=== PATIENT | male | born 1955 | race Caucasian/White ===

== ENCOUNTER 2022-01-02 08:35 | Outpatient (CLI) | payer OTHER, MEDICARE | END 2022-01-02 08:36 | disposition home or self-care (01) | LOC: TBSIIMAG 08:35 | PROVIDERS: ATTEND Neurological Surgery | DX: M47.26 Other spondylosis with radiculopathy, lumbar region (principal) | CPT/HCPCS: 72120 ==

== ENCOUNTER 2022-04-18 08:39 | Outpatient (CLI) | payer MEDICARE ==
[2022-04-18 09:29] LABS: Hemoglobin 14.8 g/dL (13.5-17.5); Mean Corpuscular HGB CONC 33.4 g/dL (32.0-36.0); Mean Corpuscular Hemoglobin 30.4 pg (27.0-33.0); Platelet Count 201 10x3/uL (150-450); RBC Distribution Width 12.8 % (11.5-14.5); Red Blood Cell (RBC) Count 4.87 10x6/uL (4.32-5.72)
[2022-04-18 09:40] LABS: Anion Gap 13 mmol/L (10-20); BUN (Urea Nitrogen) 15 mg/dL (8.4-25.7); Calc. Creatinine Clearance 0 mL/min (70-130); Calcium 9.3 mg/dL (7.8-10.44); Carbon Dioxide 26 mmol/L (23-31); Chloride 103 mmol/L (98-107); Estimated GFR 92; Glucose 123 mg/dL (80-115); Potassium 4.2 mmol/L (3.5-5.1); Sodium 138 mmol/L (136-145)
[2022-04-18 09:44] LABS: PTT 29.8 sec (22.0-33.0); Prothrombin Time 10.8 sec (9.5-12.1)
== END 2022-04-18 08:40 | disposition home or self-care (01) ==
LOC: LABBT 08:39
PROVIDERS: ATTEND Neurological Surgery
DX: Z01.818 Encounter for other preprocedural examination (principal); M48.061 Spinal stenosis, lumbar region without neurogenic claudication
CPT/HCPCS: 80048; 85027; 85610; 85730; 93005; 93010

== ENCOUNTER 2022-04-22 05:37 | Day surgery (SDC) | payer MEDICARE ==
[2022-04-18 12:04] VITALS: BMI 40.7
[2022-04-22] MEDS ORDERED: Thrombin 5000 UNITS/5 ML VIAL ONE (06:12)
[2022-04-22] MEDS ORDERED: Neomycin-Polymyxin 1 ML AMP ONE (06:12)
[2022-04-22] MEDS ORDERED: Vancomycin 1 GM VIAL ONE (06:12)
[2022-04-22] MEDS ORDERED: Bupivacaine HCl 0.5%/Epinephrine 1:200,000/PF 30 ml Vial ONE (06:12)
[2022-04-22] MEDS ORDERED: HYDROmorphone 0.5 MG/0.5 ML SYRINGE ONE (06:30)
[2022-04-22] MEDS ORDERED: fentaNYL PF 100 MCG/2 ML SYRINGE ONE (06:30)
[2022-04-22] MEDS ORDERED: Sodium Chloride 0.9% 100 ML ONE (06:54)
[2022-04-22] MEDS ORDERED: CEFAZOLIN 2 GM VIAL ONE (06:54)
[2022-04-22] MEDS ORDERED: Ondansetron PF 4 MG/2 ML Vial ONE (07:06)
[2022-04-22] MEDS ORDERED: PROPOFOL 200 MG/20 ML VIAL ONE ×2 (07:06)
[2022-04-22] MEDS ORDERED: Rocuronium Bromide 10 MG/ML (10ML VIAL) ONE (07:06)
[2022-04-22] MEDS ORDERED: Lidocaine 1% PF 5 ML VIAL ONE (07:06)
[2022-04-22] MEDS ORDERED: Dexamethasone 20 MG/5 ML VIAL ONE (07:06)
[2022-04-22] MEDS ORDERED: Glycopyrrolate 0.2 MG/ML 5 ML SYRINGE ONE (07:06)
[2022-04-22] MEDS ORDERED: SUGAMMADEX SODIUM 200 MG/2 ML VIAL ONE (11:15)
[2022-04-22] MEDS ORDERED: Tamsulosin HCl 0.4 MG CAP ONE (12:32)
== END 2022-04-22 17:18 | disposition home or self-care (01) ==
LOC: SDC 05:37
PROVIDERS: ATTEND Neurological Surgery
PROC: 01NB0ZZ Release Lumbar Nerve, Open Approach (ICD-10-PCS; principal; 2022-04-22)
PROC: 01NR0ZZ Release Sacral Nerve, Open Approach (ICD-10-PCS; 2022-04-22)
DX: M48.062 Spinal stenosis, lumbar region with neurogenic claudication (principal); M48.07 Spinal stenosis, lumbosacral region; J45.909 Unspecified asthma, uncomplicated; E78.00 Pure hypercholesterolemia, unspecified; I10 Essential (primary) hypertension; L40.9 Psoriasis, unspecified; N40.0 Benign prostatic hyperplasia without lower urinary tract symptoms; M19.90 Unspecified osteoarthritis, unspecified site; G47.33 Obstructive sleep apnea (adult) (pediatric); E66.9 Obesity, unspecified; Z68.41 Body mass index [BMI] 40.0-44.9, adult; Z79.82 Long term (current) use of aspirin; Z79.899 Other long term (current) drug therapy; Z88.5 Allergy status to narcotic agent; Z88.8 Allergy status to other drugs, medicaments and biological substances; Z98.1 Arthrodesis status
CPT/HCPCS: J1100; J1170; J2405; J2704; J3370; J3490